=== PATIENT | male | born 1995 | race Two or more races ===

== ENCOUNTER 2020-04-18 09:07 | Emergency (ER) | payer BC ==
[~2020-04-18] VITALS: Ht 177.8 cm; Wt 91.0 kg
--- NOTE | 2020-04-18 09:20 | NUR ---
ASSUMED CARE OF PT AT THIS TIME FROM LOBBY. AMBULATORY TO ROOM WITH STEADY GAIT. NAD NOTED. 24 Y/O M PRESENTS STATING "I CAN'T KEEP ANYTHING DOWN, NAUSEA, EVERY TIME I EAT I THROW UP, LIKE LAST NIGHT I ATE A BURGER AND ABOUT 3-5 MINUTES AFTER I THREW UP, ALSO HAVING LIQUID DIARRHEA, ALL THIS FOR 10 DAYS AND MY STOMACH HURTS (POINTS TO PERIUMBILICUS, LUQ AND EPIGASTRIC AREAS). MY ANXIETY HAS BEEN A LOT TOO, MY MEDS AREN'T HELPING AND MY PALMS AND FEET GET SWEATY WHEN I FEEL THAT WAY." CONT PULSE OX, BP MONITORS APPLIED. VSS. A&OX4. ASSESSMENT COMPLETED. RATES ABD PAIN 04/11. CALL LIGHT IN REACH. FALL PRECUATIONS IN PLACE.
[2020-04-18] MEDS ORDERED: ALPR0.25 PO (09:21)
[2020-04-18] MEDS ORDERED: ESCI10TA10 PO (09:21)
--- NOTE | 2020-04-18 09:31 | NUR ---
PT AMBULATED TO RESTROOM WITH STEADY GAIT. CLEAN CATCH UA COLLECTED. JOBY WOLFF AT BEDSIDE FOR EVALUATION.
--- NOTE | 2020-04-18 09:35 | NUR ---
CLEAN CATCH UA SENT TO LAB
[2020-04-18] MEDS ORDERED: ONDANSETRON 2MG/ML, 2ML ONE (09:38)
[2020-04-18] MEDS ORDERED: FAMOTIDINE 20 MG/2 ML ONE (09:38)
[2020-04-18 09:50] LABS: MICROSCOPIC NOT IND
--- NOTE | 2020-04-18 09:50 | NUR ---
IV PLACED, LABS DRAWN. PT MEDICATED NOTED IN EMAR PER MD FOR NAUSEA AND "ACID PAIN IN THROAT." RESTING COMFORTABLY. VSS. FALL PRECAUTIONS & CALL LIGHT IN PLACE
[2020-04-18] MEDS ORDERED: SODIUM CHLORIDE FLUSH 10ML SYR IVF ONE (10:00)
[2020-04-18] MEDS ORDERED: ONDANSETRON 2MG/ML, 2ML IVPush ONE (10:00)
[2020-04-18] MEDS ORDERED: SODIUM CHLORIDE 0.9% 1,000ML IVBOLUS ONE (10:00)
[2020-04-18] MEDS ORDERED: FAMOTIDINE 20 MG/2 ML IV ONE (10:00)
[2020-04-18 10:04] LABS: BASOPHILS # (AUTO) 0.02 x10^3/uL (0-0.1); BASOPHILS % (AUTO) 0 % (0-1); EOSINOPHILS # (AUTO) 0.04 x10^3/uL (0-0.4); EOSINOPHILS % (AUTO) 1 % (1-7); LYMPHOCYTES # (AUTO) 1.49 x10^3/uL (1-3.4); LYMPHOCYTES % (AUTO) 28 % (22-44); MD NO; MEAN CORPUSCULAR HEMOGLOBIN 31.9 pg (27.5-34.5); MEAN CORPUSCULAR HGB CONC 34.3 g/dL (33.2-36.2); MEAN CORPUSCULAR VOLUME 93.1 fL (81-97); MEAN PLATELET VOLUME 8.8 fL (7.4-10.4); MONOCYTES # (AUTO) 0.49 x10^3/uL (0.2-0.8); MONOCYTES % (AUTO) 9 % (2-9); NEUTROPHILS # (AUTO) 3.23 x10^3/uL (1.8-6.8); NEUTROPHILS % (AUTO) 61 % (42-75); PLATELET COUNT 218 x10^3/uL (130-400); RED BLOOD COUNT 4.81 x10^6/uL (4.38-5.82); RED CELL DISTRIBUTION WIDTH 12.7 % (9.4-14.8)
[2020-04-18 10:13] LABS: ALANINE AMINOTRANSFERASE 36 U/L (12-78); ALBUMIN 4.6 g/dL (3.4-5.0); ANION GAP 6 mmol/L (5-15); CALCIUM 9.2 mg/dL (8.5-10.1); CHLORIDE 108 mmol/L (98-107); CREATININE 1.04 mg/dL (0.7-1.3)
[2020-04-18 10:15] LABS: ALKALINE PHOSPHATASE 69 U/L (45-117); BILIRUBIN,TOTAL 0.6 mg/dL (0.2-1.0); TOTAL PROTEIN 8.6 g/dL (6.4-8.2)
--- NOTE | 2020-04-18 10:23 | NUR ---
DR. SHIPMAN WAS AT BEDSIDE TO ASSESS PT, PT REPORTED FEELING "ANXIOUS, PALMS STARTING TO SWEAT." PT MEDICATED PER REQUEST AND MD ORDER FOR ANXIETY. REPORTS ABD PAIN IMPROVED TO 3/10 AND NAUSEA RESOLVED. VSS. CALL LIGHT IN REACH. RESTING IN POSITION OF COMFORT. DENIES NEED TO USE RESTROOM. WARM BLAKET PROVIDED FOR COMFORT.
--- NOTE | 2020-04-18 10:55 | NUR ---
BEDSIDE REPORT AND TRANSFER OF CARE TO ALLY RN AT THIS TIME
[2020-04-18 11:22] VITALS: BP 129/84
[2020-04-18] MEDS ORDERED: MAALOX/HYOSCYAMINE/LIDOCAINE 45 ML BTL PO ONE (11:30)
--- NOTE | 2020-04-18 11:34 | NUR ---
Patient/Caregiver given discharge instructions and they have confirmed that they understand the instructions. Patient ambulatory with steady gait.
== END 2020-04-18 11:36 | disposition home or self-care (01) ==
LOC: ED 10:02
DX: R11.2 Nausea with vomiting, unspecified (principal); R10.12 Left upper quadrant pain; R10.13 Epigastric pain
CPT/HCPCS: 36415; 80053; 81003; 83690; 85025; 96361; 96374; 96375; 99284; J2405; J3490; J7030

== ENCOUNTER 2020-06-02 00:42 | Emergency (ER) | payer BC ==
[~2020-06-02] VITALS: Ht 172.7 cm; Wt 85.0 kg
[~2020-06-02 00:42] MED LIST: ALPR0.25 PO; ESCI10TA10 PO
--- NOTE | 2020-06-02 02:07 | NUR ---
PT CHANGED INTO GOWN AND IS GURLINDA AT THIS TIME. PT AMBULATED FROM LOBBY TO ROOM WITH STEADY GAIT.
[2020-06-02 02:22] LABS: BASOPHILS # (AUTO) 0.02 x10^3/uL (0-0.1); BASOPHILS % (AUTO) 0 % (0-1); EOSINOPHILS # (AUTO) 0.18 x10^3/uL (0-0.4); EOSINOPHILS % (AUTO) 2 % (1-7); LYMPHOCYTES # (AUTO) 2.97 x10^3/uL (1-3.4); LYMPHOCYTES % (AUTO) 39 % (22-44); MD NO; MEAN CORPUSCULAR HEMOGLOBIN 31.3 pg (27.5-34.5); MEAN CORPUSCULAR HGB CONC 33.6 g/dL (33.2-36.2); MEAN CORPUSCULAR VOLUME 93.3 fL (81-97); MEAN PLATELET VOLUME 8.8 fL (7.4-10.4); MONOCYTES # (AUTO) 0.75 x10^3/uL (0.2-0.8); MONOCYTES % (AUTO) 10 % (2-9); NEUTROPHILS # (AUTO) 3.68 x10^3/uL (1.8-6.8); NEUTROPHILS % (AUTO) 48 % (42-75); PLATELET COUNT 244 x10^3/uL (130-400); RED BLOOD COUNT 4.54 x10^6/uL (4.38-5.82); RED CELL DISTRIBUTION WIDTH 12.9 % (9.4-14.8)
[2020-06-02] MEDS ORDERED: ONDANSETRON 2MG/ML, 2ML IVPush ONE (02:30)
[2020-06-02 02:35] LABS: ALANINE AMINOTRANSFERASE 42 U/L (12-78); ALBUMIN 4.1 g/dL (3.4-5.0); ANION GAP 7 mmol/L (5-15); CALCIUM 8.8 mg/dL (8.5-10.1); CHLORIDE 107 mmol/L (98-107); CREATININE 1.19 mg/dL (0.7-1.3)
[2020-06-02] MEDS ORDERED: ONDANSETRON 2MG/ML, 2ML ONE (02:35)
[2020-06-02] MEDS ORDERED: MORPHINE SULFATE 4 MG/ML, 1ML ONE ×2 (02:35→03:20)
[2020-06-02 02:37] LABS: ALKALINE PHOSPHATASE 80 U/L (45-117); BILIRUBIN,TOTAL 0.7 mg/dL (0.2-1.0); TOTAL PROTEIN 8.3 g/dL (6.4-8.2)
[2020-06-02] MEDS: MORPHINE SULFATE 4 MG/ML, 1ML IVPush PRN ×2 (02:44→03:25)
--- NOTE | 2020-06-02 02:45 | NUR ---
PT MEDICATED PER MAR FOR PAIN AT THIS TIME. PT VSS AT THIS TIME. PT RESTING COMFORTABLY IN [facility] WITH CALL LIGHT WITHIN REACH.
[2020-06-02 02:47] VITALS: BP 111/76
--- NOTE | 2020-06-02 03:26 | NUR ---
pt medicated per mar for pain.
--- NOTE | 2020-06-02 03:59 | NUR ---
PT D/C WITH D/C SUMMARY AND SCRIPTS. ALL QUESTIONS ANSWERED. PT AMBULATES TO REGISTRATION DESK WITH STEADY GAIT FOR D/C HOME. PT VSS AND UPDATED IN EMR. PT PIV D/C WITH TIP INTACT. PT DENIES ANY OTHER NEEDS PERTAINING TO THIS VISIT.
== END 2020-06-02 04:10 | disposition home or self-care (01) ==
LOC: ED 03:03
DX: K80.50 Calculus of bile duct without cholangitis or cholecystitis without obstruction (principal); R10.13 Epigastric pain; R11.2 Nausea with vomiting, unspecified; F17.200 Nicotine dependence, unspecified, uncomplicated
CPT/HCPCS: 36415; 76700; 80053; 83690; 85025; 96374; 96375; 96376; 99284; J2270; J2405

== ENCOUNTER 2020-06-03 14:47 | Inpatient (IN) | payer BC ==
[~2020-06-03] VITALS: Ht 172.7 cm; Wt 83.3 kg
--- NOTE | 2020-06-03 15:53 | NUR ---
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
[2020-06-03] MEDS ORDERED: SODIUM CHLORIDE FLUSH 10ML SYR IVF ONE (16:30)
[2020-06-03] MEDS ORDERED: ONDANSETRON 2MG/ML, 2ML IVPush ONE (16:30)
[2020-06-03] MEDS ORDERED: MORPHINE SULFATE 4 MG/ML, 1ML ONE ×2 (16:36→17:20)
[2020-06-03] MEDS ORDERED: ONDANSETRON 2MG/ML, 2ML ONE (16:36)
[2020-06-03] MEDS: MORPHINE SULFATE 4 MG/ML, 1ML IVPush PRN ×2 (16:41→17:15)
[2020-06-03 16:46] LABS: BASOPHILS # (AUTO) 0.04 x10^3/uL (0-0.1); BASOPHILS % (AUTO) 1 % (0-1); EOSINOPHILS # (AUTO) 0.24 x10^3/uL (0-0.4); EOSINOPHILS % (AUTO) 4 % (1-7); LYMPHOCYTES # (AUTO) 1.63 x10^3/uL (1-3.4); LYMPHOCYTES % (AUTO) 27 % (22-44); MD NO; MEAN CORPUSCULAR HEMOGLOBIN 31.6 pg (27.5-34.5); MEAN CORPUSCULAR HGB CONC 34.1 g/dL (33.2-36.2); MEAN CORPUSCULAR VOLUME 92.5 fL (81-97); MONOCYTES # (AUTO) 0.43 x10^3/uL (0.2-0.8); MONOCYTES % (AUTO) 7 % (2-9); NEUTROPHILS # (AUTO) 3.83 x10^3/uL (1.8-6.8); NEUTROPHILS % (AUTO) 62 % (42-75); PLATELET COUNT 226 x10^3/uL (130-400); RED BLOOD COUNT 4.55 x10^6/uL (4.38-5.82); RED CELL DISTRIBUTION WIDTH 12.5 % (9.4-14.8)
[2020-06-03 16:50] LABS: ALANINE AMINOTRANSFERASE 32 U/L (12-78); ALBUMIN 3.9 g/dL (3.4-5.0); ANION GAP 7 mmol/L (5-15); CALCIUM 8.5 mg/dL (8.5-10.1); CHLORIDE 108 mmol/L (98-107); CREATININE 1.07 mg/dL (0.7-1.3)
[2020-06-03 16:52] LABS: ALKALINE PHOSPHATASE 76 U/L (45-117); BILIRUBIN,TOTAL 0.6 mg/dL (0.2-1.0); TOTAL PROTEIN 7.9 g/dL (6.4-8.2)
--- NOTE | 2020-06-03 17:01 | NUR ---
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 HIDA SCAN WILL BE DONE IN AM.
[2020-06-03] MEDS ORDERED: SODIUM CHLORIDE FLUSH 10ML SYR IVF PRN (18:30)
[2020-06-03] MEDS ORDERED: ONDANSETRON 2MG/ML, 2ML IVPush PRN ×2 (18:30→20:00)
[2020-06-03] MEDS ORDERED: MORPHINE SULFATE 4 MG/ML, 1ML IVPush PRN (18:30)
[2020-06-03 19:55] VITALS: BP 108/64
[2020-06-03] MEDS ORDERED: morphine SULFATE 10 MG/ML, 1ML IVPush PRN (20:00)
[2020-06-03] MEDS ORDERED: LACTATED RINGERS 1,000 ML IV SCH (20:00)
[2020-06-03 20:45] VITALS: BP 108/63
[2020-06-03] MEDS: KETOROLAC 30 MG/1 ML IV PRN (21:29)
[2020-06-03] MEDS: PANTOPRAZOLE 40 MG IV IVPush SCH (22:17)
[2020-06-03] MEDS: LORazepam 2 MG/ML, 1ML IVPush PRN (23:22)
[2020-06-04 03:00] VITALS: BP 93/58
[2020-06-04] MEDS: KETOROLAC 30 MG/1 ML IV PRN ×2 (03:44→10:38)
[2020-06-04 05:09] LABS: BASOPHILS # (AUTO) 0.05 x10^3/uL (0-0.1); BASOPHILS % (AUTO) 1 % (0-1); EOSINOPHILS # (AUTO) 0.26 x10^3/uL (0-0.4); EOSINOPHILS % (AUTO) 5 % (1-7); LYMPHOCYTES # (AUTO) 2.29 x10^3/uL (1-3.4); LYMPHOCYTES % (AUTO) 42 % (22-44); MD NO; MEAN CORPUSCULAR HEMOGLOBIN 31.5 pg (27.5-34.5); MEAN CORPUSCULAR HGB CONC 33.7 g/dL (33.2-36.2); MEAN CORPUSCULAR VOLUME 93.5 fL (81-97); MEAN PLATELET VOLUME 9.1 fL (7.4-10.4); MONOCYTES # (AUTO) 0.44 x10^3/uL (0.2-0.8); MONOCYTES % (AUTO) 8 % (2-9); NEUTROPHILS # (AUTO) 2.36 x10^3/uL (1.8-6.8); NEUTROPHILS % (AUTO) 44 % (42-75); PLATELET COUNT 206 x10^3/uL (130-400); RED BLOOD COUNT 4.37 x10^6/uL (4.38-5.82); RED CELL DISTRIBUTION WIDTH 12.7 % (9.4-14.8)
[2020-06-04 05:19] LABS: ALBUMIN 3.8 g/dL (3.4-5.0); ANION GAP 9 mmol/L (5-15); CALCIUM 8.4 mg/dL (8.5-10.1); CHLORIDE 107 mmol/L (98-107)
[2020-06-04 05:24] LABS: ALANINE AMINOTRANSFERASE 30 U/L (12-78); ALKALINE PHOSPHATASE 69 U/L (45-117); BILIRUBIN,TOTAL 0.7 mg/dL (0.2-1.0); CREATININE 1.01 mg/dL (0.7-1.3); TOTAL PROTEIN 7.5 g/dL (6.4-8.2)
[2020-06-04 06:25] VITALS: BP 108/70
[2020-06-04] MEDS: PANTOPRAZOLE 40 MG IV IVPush SCH ×2 (07:29→22:17)
[2020-06-04] MEDS ORDERED: SINCALIDE (KINEVAC) 5 MCG ONE (09:39)
[2020-06-04] MEDS: LORazepam 2 MG/ML, 1ML IVPush PRN (10:38)
[2020-06-04] MEDS: D5%-LACTATED RINGERS 1,000 ML IV SCH ×2 (10:43→22:00)
[2020-06-04] MEDS ORDERED: SUCRALFATE 1 GM TABLET ONE (11:59)
[2020-06-04] MEDS ORDERED: MORPHINE SULFATE 4 MG/ML, 1ML IVPush PRN (12:00)
[2020-06-04] MEDS: SUCRALFATE 1 GM/10 ML UDC PO SCH ×3 (12:06→22:17)
[2020-06-04 13:25] VITALS: BP 108/58
[2020-06-04] MEDS: OXYcodone IR 5MG TABLET PO PRN ×3 (13:45→22:49)
[2020-06-04] MEDS: DOCUSATE 100 MG CAPSULE PO PRN (13:51)
[2020-06-04] MEDS: MORPHINE SULFATE 4 MG/ML, 1ML IVPush PRN ×2 (15:33→19:55)
[2020-06-04] MEDS ORDERED: OMNIPAQUE 350 MG/ML, 100ML BOTTLE ONE (16:24)
[2020-06-04 19:48] VITALS: BP 91/62
[2020-06-05 00:47] VITALS: BP 97/58
[2020-06-05] MEDS: SUCRALFATE 1 GM/10 ML UDC PO SCH ×3 (07:19→16:35)
[2020-06-05 07:45] VITALS: BP 108/65
[2020-06-05] MEDS: PANTOPRAZOLE 40 MG IV IVPush SCH (08:10)
[2020-06-05] MEDS: OXYcodone IR 5MG TABLET PO PRN (08:10)
[2020-06-05] MEDS: DOCUSATE 100 MG CAPSULE PO PRN (08:11)
[2020-06-05] MEDS ORDERED: ESCITALOPRAM 10MG TABLET PO SCH (09:00)
[2020-06-05] MEDS: MORPHINE SULFATE 4 MG/ML, 1ML IVPush PRN (12:44)
[2020-06-05 14:00] VITALS: BP 143/95
[2020-06-05] MEDS ORDERED: CHLORHEXIDINE 15 ML UDC ONE (14:17)
[2020-06-05] MEDS ORDERED: MIDAZOLAM 1 MG/ML, 2ML ONE (14:39)
[2020-06-05] MEDS ORDERED: PROPOFOL 10 MG/ML, 100ML IV ONE (14:40)
[2020-06-05] MEDS ORDERED: SUCR1TAB PO (15:42)
[2020-06-05] MEDS ORDERED: PANT40TA5 PO (15:42)
[2020-06-05] MEDS ORDERED: ACET500T64 PO (15:42)
== END 2020-06-05 16:56 | disposition home or self-care (01) | DRG 392 ==
LOC: ED 17:19 → EDIP 18:30 → 4NE 19:30 → DCLOUNGE 06-05 16:53
PROVIDERS: ADMIT Family Medicine; ATTEND Hospitalist
PROC: 0DB68ZX Excision of Stomach, Via Natural or Artificial Opening Endoscopic, Diagnostic (ICD-10-PCS; 2020-06-05)
PROC: 0DB28ZX Excision of Middle Esophagus, Via Natural or Artificial Opening Endoscopic, Diagnostic (ICD-10-PCS; 2020-06-05)
PROC: 0DB98ZX Excision of Duodenum, Via Natural or Artificial Opening Endoscopic, Diagnostic (ICD-10-PCS; principal; 2020-06-05 14:30)
DX: K29.70 Gastritis, unspecified, without bleeding (principal); K80.00 Calculus of gallbladder with acute cholecystitis without obstruction; K44.9 Diaphragmatic hernia without obstruction or gangrene; K27.9 Peptic ulcer, site unspecified, unspecified as acute or chronic, without hemorrhage or perforation; F41.1 Generalized anxiety disorder; F17.200 Nicotine dependence, unspecified, uncomplicated; F41.0 Panic disorder [episodic paroxysmal anxiety]; Z20.828 Contact with and (suspected) exposure to other viral communicable diseases; K21.9 Gastro-esophageal reflux disease without esophagitis; Z79.899 Other long term (current) drug therapy; Z82.49 Family history of ischemic heart disease and other diseases of the circulatory system; Z83.3 Family history of diabetes mellitus
CPT/HCPCS: 36415; 87338; J7121; 74177; 78227; 80053; 83690; 85025; 87635; 88305; G0378; J1885; J2250; J2405; J2704; Q9967; A9537; C9113; C9898; J2060; J2270; J2805; J7120

== ENCOUNTER 2020-06-14 14:15 | Emergency (ER) | payer BC ==
[~2020-06-14] VITALS: Ht 172.7 cm; Wt 82.9 kg
[~2020-06-14 14:15] MED LIST changes: +ACET500T64 PO; +PANT40TA5 PO; +SUCR1TAB PO
--- NOTE | 2020-06-14 15:56 | NUR ---
BOAT OPERATOR: PT TO ROOM FROM LOBBY VIA W/C
--- NOTE | 2020-06-14 16:18 | NUR ---
PT HAS CO ABDOMINAL PAIN. PT WAS RECENT ADMIT IN HOSPITAL, EGD WAS DONE, FOUND HERNIA, PT WAS DC W PROTONIX AND TYLENOL, PROTONIX WAS MAKING PT THROW UP. TYLENOL NOT ENOUGH FOR PAIN. PT REQUESTING PAIN MEDS
[2020-06-14] MEDS ORDERED: PROMETHAZINE 25 MG/ML, 1ML ONE (17:48)
--- NOTE | 2020-06-14 17:54 | NUR ---
MEDICATED FOR NAUSEA. LAB AT BEDSIDE. VSS.
[2020-06-14] MEDS ORDERED: PROMETHAZINE 25 MG/ML, 1ML IM ONE (18:00)
[2020-06-14 18:07] LABS: BASOPHILS # (AUTO) 0.07 x10^3/uL (0-0.1); BASOPHILS % (AUTO) 1 % (0-1); EOSINOPHILS # (AUTO) 0.14 x10^3/uL (0-0.4); EOSINOPHILS % (AUTO) 2 % (1-7); LYMPHOCYTES % (AUTO) 26 % (22-44); MD NO; MEAN CORPUSCULAR HEMOGLOBIN 31.2 pg (27.5-34.5); MEAN CORPUSCULAR HGB CONC 33.1 g/dL (33.2-36.2); MEAN CORPUSCULAR VOLUME 94.2 fL (81-97); MEAN PLATELET VOLUME 9.6 fL (7.4-10.4); MONOCYTES # (AUTO) 0.45 x10^3/uL (0.2-0.8); MONOCYTES % (AUTO) 6 % (2-9); NEUTROPHILS # (AUTO) 4.63 x10^3/uL (1.8-6.8); NEUTROPHILS % (AUTO) 65 % (42-75); PLATELET COUNT 186 x10^3/uL (130-400); RED CELL DISTRIBUTION WIDTH 12.8 % (9.4-14.8)
[2020-06-14 18:19] LABS: ALANINE AMINOTRANSFERASE 44 U/L (12-78); ALBUMIN 4.5 g/dL (3.4-5.0); ANION GAP 3 mmol/L (5-15); CALCIUM 8.9 mg/dL (8.5-10.1); CHLORIDE 112 mmol/L (98-107); CREATININE 0.93 mg/dL (0.7-1.3)
[2020-06-14 18:21] LABS: ALKALINE PHOSPHATASE 78 U/L (45-117); BILIRUBIN,TOTAL 0.5 mg/dL (0.2-1.0); TOTAL PROTEIN 8.3 g/dL (6.4-8.2)
--- NOTE | 2020-06-14 18:48 | NUR ---
REPORT TO PARK
[2020-06-14 19:05] VITALS: BP 113/77
--- NOTE | 2020-06-14 19:24 | NUR ---
Patient given discharge instructions and they have confirmed that they understand the instructions. Patient ambulatory with steady gait.
== END 2020-06-14 19:26 | disposition home or self-care (01) ==
LOC: ED 16:41
DX: K29.00 Acute gastritis without bleeding (principal); G89.29 Other chronic pain; R10.13 Epigastric pain; R11.2 Nausea with vomiting, unspecified; Z91.19 Patient's noncompliance with other medical treatment and regimen
CPT/HCPCS: 36415; 80053; 83690; 85025; 96372; 99283; J2550

== ENCOUNTER 2020-06-28 14:10 | Emergency (ER) | payer BC ==
[~2020-06-28] VITALS: Ht 172.7 cm; Wt 80.4 kg
--- NOTE | 2020-06-28 14:35 | NUR ---
PT STATES HE'S ON A NEW KIND OF TYPE BUPROPION AND HAS HAD PALPITATIONS AND VISION CHANGES. ALSO REPORTS HX OF ANXIETY, STATES HIS SYMPTOMS MIGHT BE R/T HIS ANXIETY. WAS TOLD BY HIS PSYCHIATRIST & PCP TO COME TO ED.
--- NOTE | 2020-06-28 15:17 | NUR ---
ERP WAS IN TO SEE PT.
[2020-06-28 15:35] LABS: BASOPHILS # (AUTO) 0.03 x10^3/uL (0-0.1); BASOPHILS % (AUTO) 0 % (0-1); EOSINOPHILS # (AUTO) 0.04 x10^3/uL (0-0.4); EOSINOPHILS % (AUTO) 1 % (1-7); LYMPHOCYTES # (AUTO) 1.56 x10^3/uL (1-3.4); LYMPHOCYTES % (AUTO) 17 % (22-44); MD NO; MEAN CORPUSCULAR HEMOGLOBIN 30.8 pg (27.5-34.5); MEAN CORPUSCULAR HGB CONC 32.4 g/dL (33.2-36.2); MEAN CORPUSCULAR VOLUME 95.2 fL (81-97); MEAN PLATELET VOLUME 8.3 fL (7.4-10.4); MONOCYTES % (AUTO) 6 % (2-9); NEUTROPHILS # (AUTO) 6.87 x10^3/uL (1.8-6.8); NEUTROPHILS % (AUTO) 76 % (42-75); PLATELET COUNT 236 x10^3/uL (130-400); RED BLOOD COUNT 4.76 x10^6/uL (4.38-5.82); RED CELL DISTRIBUTION WIDTH 12.8 % (9.4-14.8)
[2020-06-28 15:45] LABS: ALBUMIN 4.8 g/dL (3.4-5.0); ANION GAP 6 mmol/L (5-15); CALCIUM 9.6 mg/dL (8.5-10.1); CHLORIDE 109 mmol/L (98-107); CREATININE 0.98 mg/dL (0.7-1.3)
[2020-06-28 15:49] LABS: TROPONIN I < 0.015 ng/mL (0.000-0.045)
--- NOTE | 2020-06-28 16:15 | NUR ---
D/C INSTRUCTIONS & F/U APPT RV'WD WITH PT, HE VERBALIZES UNDERSTANDING. PT AMBULATED OUT OF ED WITHOUT DIFFICULTY.
[2020-06-28 16:19] VITALS: BP 127/78
== END 2020-06-28 16:21 | disposition home or self-care (01) ==
LOC: ED 14:33
DX: R07.89 Other chest pain (principal); R00.2 Palpitations
CPT/HCPCS: 36415; 71045; 80048; 82040; 84484; 85025; 93005; 99285

== ENCOUNTER → 2020-07-02 | Outpatient (CLI) | payer BC ==
[~2020-07-02] MED LIST changes: +BUPR-173 PO; +HYDR-826 PO; -PANT40TA5 PO; +PANT40TA6 PO
== END | disposition home or self-care (01) ==
LOC: STAR 09:11
PROVIDERS: ATTEND Anesthesiology
DX: Z01.812 Encounter for preprocedural laboratory examination (principal); Z20.828 Contact with and (suspected) exposure to other viral communicable diseases
CPT/HCPCS: 36415; 87635

== ENCOUNTER 2020-07-04 10:42 | Day surgery (SDC) | payer BC ==
[~2020-07-04] VITALS: Ht 172.7 cm; Wt 77.8 kg
[~2020-07-04 10:42] MED LIST changes: -BUPR-173 PO; -HYDR-826 PO
[2020-07-04] MEDS ORDERED: CHLORHEXIDINE 15 ML UDC ONE (11:11)
[2020-07-04 11:33] VITALS: BP 123/79
[2020-07-04] MEDS ORDERED: PANT40TA6 PO (11:33)
[2020-07-04] MEDS ORDERED: BUPR-173 PO (11:33)
[2020-07-04] MEDS ORDERED: HYDR-826 PO (11:33)
[2020-07-04] MEDS ORDERED: SUCR1TAB PO (11:33)
[2020-07-04] MEDS ORDERED: LACTATED RINGERS 1,000 ML IV SCH (11:41)
[2020-07-04] MEDS ORDERED: CHLORHEXIDINE 15 ML UDC MM ONE (12:00)
[2020-07-04] MEDS ORDERED: FENTANYL PF 250 MCG/5ML ONE (12:20)
[2020-07-04] MEDS ORDERED: MIDAZOLAM 1 MG/ML, 2ML ONE (12:20)
[2020-07-04] MEDS ORDERED: BUPIVACAINE/EPI 0.5% 1:200K ONE (12:39)
[2020-07-04] MEDS ORDERED: HYDROmorphone 1 MG/ML, 1ML INJ IVPush PRN (13:00)
[2020-07-04] MEDS ORDERED: OXYcodone 5 MG/5 ML ORAL.SOL UDC PO PRN (13:00)
[2020-07-04] MEDS ORDERED: hydrALAzine 20 MG/ML, 1ML IV PRN (13:00)
[2020-07-04] MEDS ORDERED: LABETALOL 5MG/ML, 20ML IV PRN (13:00)
[2020-07-04] MEDS ORDERED: ACETAMINOPHEN 325 MG TABLET PO PRN ×2 (13:00→14:14)
[2020-07-04] MEDS ORDERED: ONDANSETRON 2MG/ML, 2ML IVPush PRN (13:00)
[2020-07-04] MEDS ORDERED: PROMETHAZINE 25 MG/ML, 1ML IVPush PRN (13:00)
[2020-07-04] MEDS ORDERED: CEFOTETAN PMX 2GM/50ML 50 ML ONE (13:07)
[2020-07-04] MEDS ORDERED: DEXAMETHASONE 4 MG/ML, 1ML ONE ×2 (13:09)
[2020-07-04] MEDS ORDERED: ROCURONIUM 10MG/ML,5ML ONE (13:21)
[2020-07-04] MEDS ORDERED: PROPOFOL 10 MG/ML, 20ML ONE (13:21)
[2020-07-04] MEDS ORDERED: KETOROLAC 30 MG/1 ML ONE (13:21)
[2020-07-04] MEDS ORDERED: ONDANSETRON 2MG/ML, 2ML ONE (13:22)
[2020-07-04] MEDS ORDERED: FENTANYL PF 100 MCG/2ML ONE (13:49)
[2020-07-04] MEDS: FENTANYL PF 100 MCG/2ML IV PRN ×2 (13:52→13:57)
[2020-07-04] MEDS ORDERED: OXYcodone 5 MG/5 ML ORAL.SOL UDC ONE ×2 (13:56→13:58)
[2020-07-04] MEDS ORDERED: ACETAMINOPHEN 650 MG/20.3 ML UDC ONE (13:56)
[2020-07-04] MEDS ORDERED: LORazepam 2 MG/ML, 1ML ONE (14:00)
[2020-07-04] MEDS: LORazepam 2 MG/ML, 1ML IVPush PRN ×2 (14:01→14:20)
[2020-07-04] MEDS ORDERED: MEPERIDINE/PF 25MG/ML,1ML ONE ×2 (14:09→14:33)
[2020-07-04] MEDS: MEPERIDINE/PF 25MG/0.5ML IVPush PRN ×2 (14:11→14:35)
== END 2020-07-04 16:55 | disposition home or self-care (01) ==
LOC: OUT 10:42
PROVIDERS: ATTEND Surgery
DX: K81.1 Chronic cholecystitis (principal); F41.9 Anxiety disorder, unspecified; F17.210 Nicotine dependence, cigarettes, uncomplicated; Z88.8 Allergy status to other drugs, medicaments and biological substances; Z88.1 Allergy status to other antibiotic agents; Z79.899 Other long term (current) drug therapy
CPT/HCPCS: 47562; 88304; J1100; J1170; J1885; J2060; J2175; J2250; J2405; J2704; J3010; J3490; J7120

== ENCOUNTER 2021-04-01 18:00 | Emergency (ER) | payer BC, OTHER ==
[~2021-04-01] VITALS: Ht 172.7 cm; Wt 80.0 kg
[~2021-04-01 18:00] MED LIST changes: +BUPR-173 PO; +HYDR-826 PO
[2021-04-01 18:10] VITALS: BP 122/69
--- NOTE | 2021-04-01 18:15 | NUR ---
C COLLAR IN TRIAGE
[2021-04-01] MEDS ORDERED: METHOCARBAMOL 750 MG TABLET PO ONE (18:30)
[2021-04-01] MEDS ORDERED: ACETAMINOPHEN 325 MG TABLET PO ONE (18:30)
[2021-04-01] MEDS ORDERED: ACETAMINOPHEN 325 MG TABLET ONE (18:33)
[2021-04-01] MEDS ORDERED: METHOCARBAMOL 750 MG TABLET ONE (18:33)
== END 2021-04-01 20:22 | disposition home or self-care (01) ==
LOC: ED 20:14
DX: S16.1XXA Strain of muscle, fascia and tendon at neck level, initial encounter (principal); S29.012A Strain of muscle and tendon of back wall of thorax, initial encounter; M25.512 Pain in left shoulder; V49.49XA Driver injured in collision with other motor vehicles in traffic accident, initial encounter; Y93.89 Activity, other specified; Y92.410 Unspecified street and highway as the place of occurrence of the external cause; Y99.8 Other external cause status
CPT/HCPCS: 72072; 72125; 99284